=== PATIENT | female | born 1960 | race Caucasian/White ===

== ENCOUNTER 2016-09-22 16:33 | Emergency (ER) | payer BC ==
[2016-09-22 16:44] VITALS: BP 112/70
--- NOTE | 2016-09-22 18:00 | UC ---
Ear Complaint HPI - HPI Summary HPI Summary: 55 female presents with complaints of right ear feeling itchy and having some radiation of pain when she swallows that began 2-3 days ago. She has not tried taking anything. Patient is having surgery in the next week and wanted to make sure she didn't have an ear infection. She has had them in the past but has not been sick in a long time. States her ear feels itchy. Denies sore throat, cough , and fever/chills. Admits to some nasal drainage/congestion and itchy eyes. - History of Current Complaint Chief Complaint: UCGeneralIllness Stated Complaint: RIGHT EAR/CONGESTION Time Seen by Provider: 09/22/16 17:35 Hx Obtained From: Patient ?: No Onset/Duration: Sudden Onset Severity Initially: Mild Severity Currently: Mild Aggravating Factors: Nothing Alleviating Factors: Nothing Associated Signs/Symptoms: Negative: Discharge, Foreign Body Sensation, Trauma to Ear, URI Symptoms - Allergies/Home Medications Allergies/Adverse Reactions: Allergies Allergy/AdvReac Type Severity Reaction Status Date / Time Amoxicillin Allergy Hives Verified 09/22/16 16:44 Erythromycin Allergy Hives Verified 09/22/16 16:44 Latex Allergy Rash Verified 09/22/16 16:44 Nickel Allergy Rash Verified 09/22/16 16:44 Ondansetron [From Zofran] Allergy Anaphylatic Verified 09/22/16 16:44 Shock Penicillins Allergy Unknown Verified 09/22/16 16:44 Reaction Details Sulfa Antibiotics Allergy Hives Verified 09/22/16 16:44 Vancomycin Allergy Hives Verified 09/22/16 16:44 PMH/Surg Hx/FS Hx/Imm Hx Endocrine History Of: Reports: Diabetes Cardiovascular History Of: Reports: Cardiac Disorders - Angioplasty Respiratory History Of: Reports: COPD - Surgical History Surgical History: Yes Surgery Procedure, Year, and Place: #3 right knee. tubal. 4 right hand surgeries. 2 left hand surgeries - Family History Known Family History: Positive: Cardiac Disease - mother, Hypertension - Social History Alcohol Use: Rare Substance Use Type: None Smoking Status (MU): Heavy Every Day Tobacco Smoker Review of Systems Constitutional: Negative Skin: Negative Eyes: Negative ENT: Ear Ache - radiation of pain to throat upon swallowing Respiratory: Negative Cardiovascular: Negative Gastrointestinal: Negative Neurovascular: Negative Musculoskeletal: Negative Neurological: Negative Psychological: Negative All Other Systems Reviewed And Are Negative: Yes Physical Exam Triage Information Reviewed: Yes Appearance: Well-Appearing, No Pain Distress, Well-Nourished Vital Signs: Initial Vital Signs Temp 98.5 F 09/22/16 16:40 Pulse 81 09/22/16 16:40 Resp 16 09/22/16 16:40 BP 112/70 09/22/16 16:40 Pulse Ox 100 09/22/16 16:40 Vital Signs Reviewed: Yes Eyes: Positive: Conjunctiva Clear - some cobblestoning of conjunctiva b/l noted ENT: Positive: Normal ENT inspection, Hearing grossly normal, Pharynx normal, TMs normal - fluid behind TM right ear. Negative: Pharyngeal erythema, Nasal congestion, Nasal drainage, TM bulging, TM dull, TM red, Tonsillar swelling Dental: Negative: Percussion Tenderness @, Cervical Lymphadenopathy Neck: Positive: Supple, Nontender Respiratory: Positive: Chest non-tender, Lungs clear, Normal breath sounds, No respiratory distress Cardiovascular: Positive: RRR, No Murmur, Pulses Normal Psychological Exam: Normal Skin Exam: Normal Ear Complaint Course/Dx - Course Course Of Treatment: patient will be instructed to take anti-histamine and flonase to help with eustachian tube dysfunction and allergies. aware of worsening signs/symptoms - Differential Dx/Diagnosis Differential Diagnosis/HQI/PQRI: Cerumen Impaction, Otitis Externa, Otitis Media , URI Provider Diagnoses: eustachian tube dysfunction, seasonal allergies Discharge - Discharge Plan Condition: Stable Disposition: HOME Prescriptions: Fluticasone NASAL SPRAY 50MCG* [Flonase NASAL SPRAY 50MCG*] 2 spray BOTH NARES DAILY #1 btl Patient Education Materials: Eustachian Tube Dysfunction (GEN), Allergies (ED) Referrals: Sebastian NOLAN,Michelle Carrillo [Primary Care Provider] - Additional Instructions: Take OTC Caren to help with fluid build up for the next 7 days or until symptoms last. Also use prescribed nasal spray for the next 5 days. Keep a close eye on your blood sugars. You may also want to try saline nasal spray. If symptoms worsen or do not improve please make an appointment with your primary care provider or return for further evaluation.
== END 2016-09-22 18:07 | disposition home or self-care (01) ==
LOC: UCCORT 16:33
DX: H69.91 Unspecified Eustachian tube disorder, right ear (principal); J30.2 Other seasonal allergic rhinitis; Z88.1 Allergy status to other antibiotic agents; Z88.0 Allergy status to penicillin; Z88.2 Allergy status to sulfonamides; F17.210 Nicotine dependence, cigarettes, uncomplicated
CPT/HCPCS: 99212; G0463

== ENCOUNTER 2018-03-22 13:04 | Emergency (ER) | payer BC ==
--- OUTSIDE RECORDS SUMMARY | 2018-03-22 13:20 | XMS REPORT ---
:1960 External Reference #:[id number] Author Organization [facility], [facility] Address [address] [place] [address] Phone [phone] Care Team Providers Name Role Phone Michelle Arias MD Primary Care Physician Unavailable Payers Type Date Identification Numbers Payment Provider Subscriber Commercial Policy Number: [id number] Barbara HALLMAN [facility] Toya Hinson PayID: [id number] [address] [address] [place] [address] Problems Date Description Provider Status Onset: 11/11/2012 Tobacco dependence syndrome Active Onset: 11/11/2012 Type 1 diabetes mellitus Active Onset: 09/10/2016 Subclavian artery stenosis Michelle Melendez MD Active Note: s/p PTCA in 2011, followed by [facility] vascular Onset: 09/10/2016 Degeneration of lumbar Michelle Melendez MD Active intervertebral disc Onset: 09/10/2016 Chronic obstructive lung disease Michelle Melendez MD Active Note: PFT done 09/09/15: FEV1 1.49, FVC 2.65 moderate obstructive lung defect , no response to bronchodilator Onset: 08/23/2014 Ulcer of foot Resolved Resolved: 09/10/2016 Onset: 11/11/2012 Asthma Resolved Resolved: 09/10/2016 Family History Date Family Member(s) Problem(s) Comments Mother Degenerative Joint Disease Social History Type Date Description Comments ETOH Use Denies alcohol use Smoking Heavy tobacco smoker (more than 10 cigarettes/day) Recreational Drug Use Denies Drug Use Daily Caffeine Consumes on average 5-10 cups of regular coffee per day Exercise Type/Frequency Does not exercise Allergies, Adverse Reactions, Alerts Date Description Reaction Status Severity Comments 09/08/2016 Penicillins active 09/08/2016 Sulfa Antibiotics active 09/08/2016 Latex active 09/08/2016 Zofran active Fatal Medications Medication Date Status Form Strength Qnty SIG Indications Ordering Provider Ventolin HFA 09/21/ Active Aerosol 108(90Base 18gm inhale 2 2016 ) mcg/Act puff by [facility] inhalation MD Al route every 4 - 6 hours needed Valerian 09/08/ Active Capsules 500mg 2 every day 2016 Michael Melendez MD Melatonin 09/08/ Active Capsules 10mg 30caps 1 cap by 2016 mouth AT [facility] bedtime MD Al needed Vitamin D 09/08/ Active Tablets 2000Unit 1 by mouth 2016 every day Michael Melendez MD Duoneb 09/18/ Active Solution 0.5-2.5(3) 1units Use one vial Unknown 2015 mg/3ML via nebulizer every 4 hours Aspirin 11/11/ Active Tablets 325mg take 1 Unknown 2012 tablet (325MG) by oral route every day Humalog 03/10/ Active Solution 100Unit/ML 0units Use Unknown 2004 Directed Tizanidine / Active Capsules 2mg 0caps take 2 Unknown HCL 0000 Capsule by oral route AT bedtime Simvastatin / Active Tablets 10mg 1 by mouth Unknown 0000 every day Protopic 01/30/ Hx Ointment 0.1% apply by Unknown 2012 - topical 09/08/ route 2 2017 times every day a thin layer to the affected area(s) ; rub in gently and co Combivent 03/10/ Hx Aerosol 18-103mcg/ 0units Use Unknown 2004 - Act Directed 2016 Immunizations CPT Code Status Date Vaccine Lot # [id number] Given 04/08/2017 Influenza Vaccine, High Dose > 65 Years Old (Includes Medicare) 02000 Given 04/14/2016 Influenza Virus Vaccine, Split 3 Yrs AB Vital Signs Date Vital Result Comment 03/09/2018 Weight 111.00 lb BP Systolic 140 mmHg BP Diastolic 80 mmHg Heart Rate 79 /min Body Temperature 98.2 F Temperature in Celsius 36.8 O2 % BldC Oximetry 98 % 02/11/2018 Height 63 inches 5'3" Weight 111.00 lb BMI (Body Mass Index) 19.7 kg/m2 BP Systolic 112 mmHg BP Diastolic 80 mmHg Heart Rate 78 /min O2 % BldC Oximetry 98 % 09/08/2016 Weight 116.00 lb BP Systolic 140 mmHg BP Diastolic 72 mmHg Heart Rate 85 /min Body Temperature 97.8 F Temperature in Celsius 36.6 O2 % BldC Oximetry 98 % 08/23/2014 Height 64.75 inches Weight 119.00 lb BMI (Body Mass Index) 19.95 kg/m2 BP Systolic 133 mmHg BP Diastolic 81 mmHg Heart Rate 82 /min Body Temperature 97.3 F Temperature in Celsius 36.3 O2 % BldC Oximetry 98 % 06/29/2013 Heart Rate 91 /min 06/29/2013 Weight 120.00 lb BP Systolic 128 mmHg BP Diastolic 60 mmHg Heart Rate 91 /min Body Temperature 96.2 F Temperature in Celsius 35.7 05/29/2013 Heart Rate 84 /min O2 % BldC Oximetry 98 % 05/29/2013 Weight 118.19 lb BP Systolic 138 mmHg BP Diastolic 72 mmHg Heart Rate 84 /min Body Temperature 96.2 F Temperature in Celsius 35.7 O2 % BldC Oximetry 98 % 01/30/2013 Heart Rate 85 /min O2 % BldC Oximetry 92 % 01/30/2013 Weight 114.00 lb BP Systolic 120 mmHg BP Diastolic 77 mmHg Heart Rate 85 /min Body Temperature 98.0 F Temperature in Celsius 36.7 O2 % BldC Oximetry 92 % 11/11/2012 Heart Rate 76 /min O2 % BldC Oximetry 95 % 11/11/2012 Weight 121.00 lb BP Systolic 120 mmHg BP Diastolic 84 mmHg Heart Rate 76 /min Body Temperature 98.5 F Temperature in Celsius 36.9 O2 % BldC Oximetry 95 % 09/07/2012 Weight 119.00 lb BP Systolic 140 mmHg BP Diastolic 86 mmHg Heart Rate 83 /min Body Temperature 98.4 F Temperature in Celsius 36.9 06/23/2012 Weight 115.00 lb BP Systolic 114 mmHg BP Diastolic 66 mmHg 11/06/2009 BP Systolic 130 mmHg BP Diastolic 87 mmHg Heart Rate 85 /min Body Temperature 97.9 F Temperature in Celsius 36.6 02/21/2007 Height 64.75 inches Weight 116.50 lb BMI (Body Mass Index) 19.00 kg/m2 BP Systolic 110 mmHg BP Diastolic 70 mmHg Heart Rate 64 /min Results Test Date Test Result H/L Range Note Laboratory test finding 10/14/2017 Glucose Poc 151 mg/dL High 70-105 Hemoglobin A1c 10/14/2017 Hgb A1c MFr Bld 8.5 % High 4.0-6.0 Est. average glucose Bld gHb Est-mCnc 197 mg/dL High <126 Laboratory test finding 11/30/2016 Hemoglobin A1c 7.4 Laboratory test finding 09/08/2016 Hgb A1c 8.6 % High 3.6-6.9 1 LPPM 09/08/2016 Cholesterol 143 mg/dL 0-200 Triglycerides 56 mg/dL 0-249 2 HDL 65 mg/dL High 40-60 LDL-Calculated 67 mg/dL 0-130 VLDL 11 mg/dL 0-28 Cardiac Risk 2.20 Ratio Low 3.7-5.3 CMP-Female 09/08/2016 Glucose 119 mg/dL High 74-106 3 BUN 12 mg/dL 6-20 Creatinine 0.6 mg/dL 0.5-1.3 Sodium 145 mmol/L 136-145 Potassium 4.4 mmol/L 3.5-5.3 Chloride 109 mmol/L High 98-107 Co2 30 mEq/L 20-31 Anion Gap 6 mmol/L Low 7-16 eGFR-female 105 mL/m/1.73m - eGFR-Aa female 127 mL/m/1.73m - 4 Alk. Phos. 80 U/L 46-116 Alt 17 U/L 4-36 Ast 14 U/L 8-33 Total Bilirubin 0.9 mg/dL 0.3-1.2 Total Protein 6.4 g/dL 6.4-8.3 5 Albumin 4.2 g/dL 3.4-4.8 A/G Ratio 1.9 Ratio 1.0-2.0 Globulin 2.2 g/dL Low 2.4-3.7 Calcium 10.0 mg/dL 8.9-10.5 Cbcadp 09/08/2016 WBC 9.1 x10E3/uL 4.2-12.0 RBC 4.52 x10E6/uL 3.9-5.4 HGB 14.3 g/dL 12.0-16.0 HCT 43.0 % 36-47 MCV 95.2 fL 80-98 MCH 31.7 pg 27-33 MCHC 33.3 g/dL 32-36 RDW 13.0 % 11.2-15.2 PLT 321 x10E3/uL 135-420 MPV 8.5 fL 7.0-12.3 % [place] 55.1 % 41.0-80.0 %Lym 38.5 % 10.0-45.2 %Early 4.9 % 2.0-13.0 %Eos 1.0 % 0.0-8.0 %Baso 0.6 % 0.0-3.0 Neut 5.0 x10E3/uL 2.0-8.1 Lymp 3.5 x10E3/uL High 0.6-3.1 Early 0.4 x10E3/uL 0.0-1.0 Eos 0.1 x10E3/uL 0.0-0.6 Baso 0.1 x10E3/uL 0.0-0.2 PT-Inr 09/08/2016 PT 11.1 Sec 9.6-12.0 Inr 1.0 - 6 Laboratory test finding 09/08/2016 PTT 31.8 Sec 25.5-35.5 7 Est. Average Glucose 200 mg/dL - 8 Venipuncture DONE - 9 CMP-Female 02/06/2013 A/G Ratio 1.8 Ratio A/G Ratio 1.8 Ratio Albumin 3.9 g/dL Albumin 3.9 g/dL Alk. Phos. 88 U/L Alk. Phos. 88 U/L Alt 26 U/L Alt 26 U/L Anion Gap 2 mmol/L Anion Gap 2 mmol/L Ast 20 U/L Ast 20 U/L BUN 15 mg/dL 10 BUN 15 mg/dL 11 Calcium 9.7 mg/dL Calcium 9.7 mg/dL Chloride 107 mmol/L Chloride 107 mmol/L Co2 31 mEq/L Co2 31 mEq/L Creatinine 0.6 mg/dL Creatinine 0.6 mg/dL Globulin 2.2 g/dL Globulin 2.2 g/dL Glucose 98 mg/dL 12 Glucose 98 mg/dL 13 Potassium 4.8 mmol/L Potassium 4.8 mmol/L Sodium 140 mmol/L Sodium 140 mmol/L Total Bilirubin 0.8 mg/dL Total Bilirubin 0.8 mg/dL Total Protein 6.1 g/dL 14 Total Protein 6.1 g/dL 15 eGFR-Aa female 128 mL/m/1.73m 16 eGFR-Aa female 128 mL/m/1.73m 17 eGFR-female 106 mL/m/1.73m eGFR-female 106 mL/m/1.73m Venipuncture 02/06/2013 Venipuncture Done CMP-Female 02/01/2013 A/G Ratio 1.7 Ratio Albumin 4.1 g/dL Alk. Phos. 88 U/L Alt 19 U/L Anion Gap 3 mmol/L Ast 17 U/L BUN 11 mg/dL Calcium 9.8 mg/dL Chloride 106 mmol/L Co2 30 mEq/L Creatinine 0.6 mg/dL Globulin 2.4 g/dL Glucose 223 mg/dL 18 Potassium 5.8 mmol/L 19 Sodium 139 mmol/L Total Bilirubin 0.9 mg/dL Total Protein 6.5 g/dL 20 eGFR-Aa female 128 mL/m/1.73m 21 eGFR-female 106 mL/m/1.73m Venipuncture 02/01/2013 Venipuncture Done Amylase 01/30/2013 Amylase 57 U/L Amylase 57 U/L Venipuncture 01/30/2013 Venipuncture Done Cbcadp 01/30/2013 % [place] 62.3 % % [place] 62.3 % %Baso 1.2 % %Baso 1.2 % %Eos 1.5 % %Eos 1.5 % %Lym 29.5 % %Lym 29.5 % %Early 3.9 % %Early 3.9 % Baso 0.1 x10E3/uL Baso 0.1 x10E3/uL Eos 0.2 x10E3/uL Eos 0.2 x10E3/uL HCT 44.9 % HCT 44.9 % HGB 15.1 g/dL HGB 15.1 g/dL Lymp 3.1 x10E3/uL Lymp 3.1 x10E3/uL MCH 32.0 pg MCH 32.0 pg MCHC 33.6 g/dL MCHC 33.6 g/dL MCV 95.1 fL MCV 95.1 fL MPV 7.8 fL MPV 7.8 fL Early 0.4 x10E3/uL Early 0.4 x10E3/uL Neut 6.6 x10E3/uL Neut 6.6 x10E3/uL PLT 362 x10E3/uL PLT 362 x10E3/uL RBC 4.72 x10E6/uL RBC 4.72 x10E6/uL RDW 12.3 % RDW 12.3 % WBC 10.5 x10E3/uL 22 WBC 10.5 x10E3/uL 23 CMP-Female 01/30/2013 Anion Gap 4 mmol/L Anion Gap 4 mmol/L BUN 11 mg/dL 24 BUN 11 mg/dL 25 Calcium 9.7 mg/dL Calcium 9.7 mg/dL Chloride 105 mmol/L Chloride 105 mmol/L Co2 32 mEq/L 26 Co2 32 mEq/L 27 Creatinine 0.7 mg/dL Creatinine 0.7 mg/dL Glucose 255 mg/dL 28 Glucose 255 mg/dL 29 Potassium 5.5 mmol/L Potassium 5.5 mmol/L Sodium 141 mmol/L Sodium 141 mmol/L eGFR-Aa female 107 mL/m/1.73m 30 eGFR-Aa female 107 mL/m/1.73m 31 eGFR-female 89 mL/m/1.73m eGFR-female 89 mL/m/1.73m LDH 01/30/2013 LDH 154 U/L LDH 154 U/L PREM 01/30/2013 A/G Ratio 2.0 Ratio A/G Ratio 2.0 Ratio Albumin 4.0 g/dL Albumin 4.0 g/dL Alk. Phos. 93 U/L Alk. Phos. 93 U/L Alt 18 U/L Alt 18 U/L Ast 18 U/L Ast 18 U/L Direct Bilirubin 0.3 mg/dL Direct Bilirubin 0.3 mg/dL Globulin 2 g/dL Globulin 2 g/dL Total Bilirubin 0.8 mg/dL Total Bilirubin 0.8 mg/dL Total Protein 6.0 g/dL 32 Total Protein 6.0 g/dL 33 Lipase 01/30/2013 Lipase 33.0 U/L Lipase 33.0 U/L Phosphorus 01/30/2013 Phosphorus 3.2 mg/dL Phosphorus 3.2 mg/dL Uric Acid 01/30/2013 Uric Acid 2.7 mg/dL Uric Acid 2.7 mg/dL Lipase 09/07/2012 Lipase 37.0 U/L Lipase 37.0 U/L Phosphorus 09/07/2012 Phosphorus 4.0 mg/dL Phosphorus 4.0 mg/dL Troponin, Ultra 09/07/2012 Troponin, Ultra <0.006 ng/mL 34 Troponin, Ultra <0.006 ng/mL 35 UA_M 09/07/2012 Bacteria. Negative Bacteria. Negative Blood. Negative Blood. Negative Clarity. Cloudy Clarity. Cloudy Color. Yellow Color. Yellow Glucose, Urine Negative Glucose, Urine Negative Ketone. Negative Ketone. Negative Leukocytes. Negative Leukocytes. Negative Nitrite. Negative Nitrite. Negative Protein. Negative Protein. Negative Red Blood Cell 0 - 2 Red Blood Cell 0 - 2 Specific [place]. 1.018 Specific [place]. 1.018 Squamous Epithelial Cell 2 - 5 Squamous Epithelial Cell 2 - 5 White Blood Cell 0 - 2 White Blood Cell 0 - 2 bilirubin. Negative bilirubin. Negative PH. 7.5 PH. 7.5 Uric Acid 09/07/2012 Uric Acid 2.7 mg/dL Uric Acid 2.7 mg/dL Venipuncture 09/07/2012 Venipuncture Done Venipuncture Done LDH 09/07/2012 LDH 154 U/L LDH 154 U/L Culture, Urine 09/07/2012 Culture, Urine See Comment 36 CMP-Female 09/07/2012 A/G Ratio 1.9 Ratio A/G Ratio 1.9 Ratio Albumin 4.3 g/dL Albumin 4.3 g/dL Alk. Phos. 77 U/L Alk. Phos. 77 U/L Alt 19 U/L Alt 19 U/L Anion Gap 5 mmol/L Anion Gap 5 mmol/L Ast 19 U/L Ast 19 U/L BUN 19 mg/dL BUN 19 mg/dL Calcium 9.5 mg/dL Calcium 9.5 mg/dL Chloride 106 mmol/L Chloride 106 mmol/L Co2 31 mEq/L Co2 31 mEq/L Creatinine 0.7 mg/dL Creatinine 0.7 mg/dL Globulin 2.3 g/dL Globulin 2.3 g/dL Glucose 104 mg/dL 37 Glucose 104 mg/dL 38 Potassium 3.9 mmol/L Potassium 3.9 mmol/L Sodium 142 mmol/L Sodium 142 mmol/L Total Bilirubin 0.5 mg/dL Total Bilirubin 0.5 mg/dL Total Protein 6.6 g/dL 39 Total Protein 6.6 g/dL 40 eGFR-Aa female 108 mL/m/1.73m 41 eGFR-Aa female 108 mL/m/1.73m 42 eGFR-female 89 mL/m/1.73m eGFR-female 89 mL/m/1.73m Amylase 09/07/2012 Amylase 70 U/L Amylase 70 U/L Advia Cbcadp 09/07/2012 % [place] 55.2 % % [place] 55.2 % %Baso 0.8 % %Baso 0.8 % %Eos 1.3 % %Eos 1.3 % %Lym 34.9 % %Lym 34.9 % %Early 6.0 % %Early 6.0 % Baso 0.1 x10E3/uL Baso 0.1 x10E3/uL Eos 0.1 x10E3/uL Eos 0.1 x10E3/uL HCT 43.1 % HCT 43.1 % HGB 14.5 g/dL HGB 14.5 g/dL Lymp 2.7 x10E3/uL Lymp 2.7 x10E3/uL MCH 32.0 pg MCH 32.0 pg MCHC 33.5 g/dL MCHC 33.5 g/dL MCV 95.5 fL MCV 95.5 fL MPV 7.3 fL MPV 7.3 fL Early 0.5 x10E3/uL Early 0.5 x10E3/uL Neut 4.3 x10E3/uL Neut 4.3 x10E3/uL PLT 385 x10E3/uL PLT 385 x10E3/uL RBC 4.52 x10E6/uL RBC 4.52 x10E6/uL RDW 12.2 % RDW 12.2 % WBC 7.7 x10E3/uL WBC 7.7 x10E3/uL Advia Cbcadp 11/06/2009 % [place] 62.3 % %Baso 0.4 % %Eos 2.8 % %Lym 29.1 % %Early 4.3 % Baso 0.0 x10E3/uL Eos 0.3 x10E3/uL HCT 41.5 % HGB 14.1 g/dL Lymp 2.6 x10E3/uL MCH 31.4 pg MCHC 33.9 g/dL MCV 92.6 fL MPV 7.6 fL Early 0.4 x10E3/uL Neut 5.6 x10E3/uL PLT 302 x10E3/uL RBC 4.49 x10E6/uL RDW 12.3 % WBC 8.9 x10E3/uL 1 Hgb A1c Interpretation: <5.8% - Non-diabetic >6.5% - Diabetic <7.0% - ADA diabetic treatment goal 2 National Cholesterol Education Program (NCEP) Guidelines: Recommended Range <150 mg/dL 3 Citizen Of The [place] Diabetes Association (ADA) Recommended Range is 65-99 mg/dL 4 Normal Kidney Function or Mild Disease GFR >59 mL/min/1.73m2 Chronic Kidney Disease GFR 15-59 mL/min/1.73m2 Renal Failure GFR <15 mL/min/1.73m2 5 Results may reflect a potential interference in Total Protein results in patients receiving dextran as blood volume expanders. 6 Labprint and transmitted 2.14.17 1355 ss * INR Interpretation : . Recommended Theraputic Range: 2.0 - 3.0 . For treatment/prophylaxis . of venous thrombosis, . prevention of embolism. . . 7 fasting 8 The Estimated Average Glucose is a calculation of the average glucose over the last 120 days including non-fasting as well as fasting levels. 9 fasting 10 Labprint and transmitted 1100 kmc 11 Labprint and transmitted 1100 kmc 12 Citizen Of [place] Diabetes Association (ADA) Recommended Range is 65-99 mg/dL 13 Citizen Of [place] Diabetes Association (ADA) Recommended Range is 65-99 mg/dL 14 Look for trends 15 Look for trends 16 Normal Kidney Function or Mild Disease GFR >59 mL/min/1.73m2 Chronic Kidney Disease GFR 15-59 mL/min/1.73m2 Renal Failure GFR <15 mL/min/1.73m2 As of 09/24/2008 the equation used to calculate eGFR has been changed to reflect a reagent reformulation. The reference range has not been affected. 17 Normal Kidney Function or Mild Disease GFR >59 mL/min/1.73m2 Chronic Kidney Disease GFR 15-59 mL/min/1.73m2 Renal Failure GFR <15 mL/min/1.73m2 As of 09/24/2008 the equation used to calculate eGFR has been changed to reflect a reagent reformulation. The reference range has not been affected. 18 Citizen Of [place] Diabetes Association (ADA) Recommended Range is 65-99 mg/dL 19 Results Confirmed by Repeat Analysis. 20 Results may reflect a potential interference in Total Protein results in patients receiving dextran as blood volume expanders. 21 Normal Kidney Function or Mild Disease GFR >59 mL/min/1.73m2 Chronic Kidney Disease GFR 15-59 mL/min/1.73m2 Renal Failure GFR <15 mL/min/1.73m2 As of 09/24/2008 the equation used to calculate eGFR has been changed to reflect a reagent reformulation. The reference range has not been affected. 22 results faxed 100 do 23 results faxed 100 do 24 Labprint and transmitted 1641 kmc 25 Labprint and transmitted 1641 kmc 26 Results Confirmed by Repeat Analysis. 27 Results Confirmed by Repeat Analysis. 28 Citizen Of [place] Diabetes Association (ADA) Recommended Range is 65-99 mg/dL 29 Citizen Of [place] Diabetes Association (ADA) Recommended Range is 65-99 mg/dL 30 Normal Kidney Function or Mild Disease GFR >59 mL/min/1.73m2 Chronic Kidney Disease GFR 15-59 mL/min/1.73m2 Renal Failure GFR <15 mL/min/1.73m2 As of 09/24/2008 the equation used to calculate eGFR has been changed to reflect a reagent reformulation. The reference range has not been affected. 31 Normal Kidney Function or Mild Disease GFR >59 mL/min/1.73m2 Chronic Kidney Disease GFR 15-59 mL/min/1.73m2 Renal Failure GFR <15 mL/min/1.73m2 As of 09/24/2008 the equation used to calculate eGFR has been changed to reflect a reagent reformulation. The reference range has not been affected. 32 Results Confirmed by Repeat Analysis. 33 Results Confirmed by Repeat Analysis. 34 Please note new reference range. Ultra sensitive assay in use. 35 Please note new reference range. Ultra sensitive assay in use. 36 Report Type: Final Sample Information Test: Culture, Urine Specimen Type: Source: Request Date/Time: 09/07/12 10:56 Collect Date/Time: 09/07/12 10:04 Receive Date/Time: 09/07/12 10:56 Status: Completed 09/08/2012 @ 12:33 Comment: CULTURE REPORT Plated Date/Time: / / : Elapsed Time Culture Report 18 Hours Culture grew three (3) or more organisms. No predominating organism. 37 Citizen [place] Diabetes Association (ADA) Recommended Range is 65-99 mg/dL 38 Citizen Of [place] Diabetes Association (ADA) Recommended Range is 65-99 mg/dL 39 Results may reflect a potential interference in Total Protein results in patients receiving dextran as blood volume expanders. 40 Results may reflect a potential interference in Total Protein results in patients receiving dextran as blood volume expanders. 41 Normal Kidney Function or Mild Disease GFR >59 mL/min/1.73m2 Chronic Kidney Disease GFR 15-59 mL/min/1.73m2 Renal Failure GFR <15 mL/min/1.73m2 As of 09/24/2008 the equation used to calculate eGFR has been changed to reflect a reagent reformulation. The reference range has not been affected. 42 Normal Kidney Function or Mild Disease GFR >59 mL/min/1.73m2 Chronic Kidney Disease GFR 15-59 mL/min/1.73m2 Renal Failure GFR <15 mL/min/1.73m2 As of 09/24/2008 the equation used to calculate eGFR has been changed to reflect a reagent reformulation. The reference range has not been affected. Procedures Date CPT Code Description Status 09/09/2016 92804 Bronchodilation Responsiveness Spirometry Pre/Post Completed Bronchodil Adm 11/07/2009 53448 Echography Extremity Non-Vascular B-Scan Completed 05/16/2007 09890 Pulse Oximetry Single Determination Completed 05/16/2007 19760 X-Ray Chest Two Views Frontal & Lateral Completed Encounters Type Date Location Provider CPT E/M Dx Office Visit 02/11/2018 10:00a [facility] [address] R51 Renée Office Visit 09/08/2016 11:30a [facility] [address] M50.10 Renée Melendez MD E10.65 J43.9 I73.9 Plan of Care No Information Available
[2018-03-22 14:13] VITALS: BP 140/76
--- NOTE | 2018-03-22 14:22 | UC ---
Skin Complaint HPI - HPI Summary HPI Summary: rash left lower abdomen x 2 days total of 3 papular rash very itchy, no pain no fever, no chills - History of Current Complaint Chief Complaint: UCSkin Time Seen by Provider: 03/22/18 14:06 Stated Complaint: RASH Hx Obtained From: Patient Onset/Duration: Gradual Onset, Lasting Days - 2, Still Present Timing: Constant Onset Severity: Moderate Current Severity: Moderate Pain Intensity: 0 Location: Other - left lower abd Character: Pruritus, Redness, Raised Aggravating Factor(s): Nothing Alleviating Factor(s): Nothing Associated Signs & Symptoms: Positive: Negative Related History: Insect Bite/Sting - Allergy/Home Medications Allergies/Adverse Reactions: Allergies Allergy/AdvReac Type Severity Reaction Status Date / Time ondansetron Allergy Severe Anaphylatic Verified 03/22/18 14:17 Shock amoxicillin Allergy Unknown Hives Verified 03/22/18 14:17 erythromycin base Allergy Unknown Hives Verified 03/22/18 14:17 latex Allergy Unknown Rash Verified 03/22/18 14:20 nickel Allergy Unknown Rash Verified 03/22/18 14:20 Sulfa (Sulfonamide Allergy Unknown Hives Verified 03/22/18 14:17 Antibiotics) vancomycin Allergy Unknown Hives Verified 03/22/18 14:17 MS Amoxicillin [Amoxicillin] Allergy Hives Verified 03/22/18 13:59 MS Erythromycin Allergy Hives Verified 03/22/18 13:59 [Erythromycin] MS Latex [Latex] Allergy Rash Verified 03/22/18 13:59 MS Nickel [Nickel] Allergy Rash Verified 03/22/18 13:59 MS Ondansetron [From Zofran] Allergy Anaphylatic Verified 03/22/18 13:59 Shock MS Penicillins [Penicillins] Allergy Unknown Verified 03/22/18 13:59 Reaction Details MS Sulfa Antibiotics Allergy Hives Verified 03/22/18 13:59 [Sulfa Antibiotics] MS Vancomycin [Vancomycin] Allergy Hives Verified 03/22/18 13:59 wiskey Allergy Severe Anaphylatic Uncoded 03/22/18 14:00 Shock Review of Systems Constitutional: Negative Skin: Rash Eyes: Negative ENT: Negative Respiratory: Negative Is Patient Immunocompromised?: No All Other Systems Reviewed And Are Negative: Yes PMH/Surg Hx/FS Hx/Imm Hx Endocrine History: Diabetes - Surgical History Surgical History: Yes Surgery Procedure, Year, and Place: neck fusion. #3 right knee. tubal. 4 right hand surgeries. 2 left hand surgeries. ANGIOPLASTY - Family History Known Family History: Positive: Cardiac Disease - mother, Hypertension - Social History Alcohol Use: Rare Substance Use Type: None Smoking Status (MU): Heavy Every Day Tobacco Smoker Type: Cigarettes Amount Used/How Often: 3/4 PPD Household Exposure Type: Cigarettes Physical Exam Triage Information Reviewed: Yes Appearance: Well-Appearing, No Pain Distress, Well-Nourished Vital Signs: Initial Vital Signs Temp 98.9 F 03/22/18 14:02 Pulse 74 03/22/18 14:02 Resp 16 03/22/18 14:02 BP 140/76 03/22/18 14:02 Pulse Ox 99 03/22/18 14:02 Vital Signs Reviewed: Yes Eye Exam: Normal Eyes: Positive: Conjunctiva Clear ENT: Positive: Normal ENT inspection, Hearing grossly normal, Pharynx normal Neck: Positive: Supple, Nontender, No Lymphadenopathy Respiratory: Positive: Chest non-tender, Lungs clear, Normal breath sounds Cardiovascular: Positive: RRR, No Murmur, Pulses Normal Skin: Positive: rashes - papular rash left lower abd., + erythema, not tender Course/Dx - Diagnoses Provider Diagnoses: insect bite abdominal wall Discharge - Sign-Out/Discharge Documenting (check all that apply): Patient Departure All imaging exams completed and their final reports reviewed: No Studies - Discharge Plan Condition: Stable Disposition: HOME Prescriptions: Triamcinolone 0.1% CREAM (NF) [Kenalog 0.1% Cream (NF)] 1 applic TOPICAL BID # 30 gm Patient Education Materials: Insect Bite or Sting (ED) Referrals: Sebastian NOLAN,Michelle Carrillo [Primary Care Provider] - If Needed - Billing Disposition and Condition Condition: STABLE Disposition: Home
== END 2018-03-22 14:30 | disposition home or self-care (01) ==
LOC: UCCORT 13:04
DX: S30.861A Insect bite (nonvenomous) of abdominal wall, initial encounter (principal); E11.9 Type 2 diabetes mellitus without complications; F17.210 Nicotine dependence, cigarettes, uncomplicated; Z88.8 Allergy status to other drugs, medicaments and biological substances; Z88.0 Allergy status to penicillin; Z88.1 Allergy status to other antibiotic agents; Z91.040 Latex allergy status; Z91.09 Other allergy status, other than to drugs and biological substances; Z88.2 Allergy status to sulfonamides; Z91.018 Allergy to other foods; W57.XXXA Bitten or stung by nonvenomous insect and other nonvenomous arthropods, initial encounter; Y92.9 Unspecified place or not applicable
CPT/HCPCS: 99212; G0463

== ENCOUNTER 2019-02-17 12:54 | Emergency (ER) | payer BC ==
[2019-02-17 13:27] VITALS: BP 125/66
--- NOTE | 2019-02-17 13:53 | UC ---
General HPI - HPI Summary HPI Summary: PT HAD SOME SPOTS ON HER FOREHEAD AND CHEEKS FROZEN BY DERMATOLOGY 2 DAYS AGO. TODAY, SHE NOTES SWELLING TO HER HER L JAW. - History of Current Complaint Chief Complaint: UCSkin Stated Complaint: SKIN COMPLAINT Time Seen by Provider: 02/17/19 13:46 Hx Obtained From: Patient Timing: Constant Pain Intensity: 0 Associated Signs & Symptoms: Negative: Fever - Allergy/Home Medications Allergies/Adverse Reactions: Allergies Allergy/AdvReac Type Severity Reaction Status Date / Time ondansetron Allergy Severe Anaphylatic Verified 02/17/19 13:20 Shock amoxicillin Allergy Unknown Hives Verified 02/17/19 13:20 erythromycin base Allergy Unknown Hives Verified 02/17/19 13:20 latex Allergy Unknown Rash Verified 02/17/19 13:20 nickel Allergy Unknown Rash Verified 02/17/19 13:20 Penicillins Allergy Unknown Unknown Verified 02/17/19 13:20 Reaction Details Sulfa (Sulfonamide Allergy Unknown Hives Verified 02/17/19 13:20 Antibiotics) vancomycin Allergy Unknown Hives Verified 02/17/19 13:20 wiskey Allergy Severe Anaphylatic Uncoded 02/17/19 13:20 Shock Home Medications: Home Medications Aspirin EC TAB* [Ecotrin EC TAB*] 325 mg PO DAILY 02/17/19 [History Confirmed ] Fluticasone NASAL SPRAY 50MCG* [Flonase NASAL SPRAY 50MCG*] 2 spray BOTH NARES DAILY PRN 02/17/19 [History Confirmed 02/17/19] PMH/Surg Hx/FS Hx/Imm Hx Endocrine History: Diabetes, Dyslipidemia - Surgical History Surgical History: Yes Surgery Procedure, Year, and Place: neck fusion. #3 right knee. tubal. 4 right hand surgeries. 2 left hand surgeries. ANGIOPLASTY - Family History Known Family History: Positive: Cardiac Disease - mother, Hypertension - Social History Alcohol Use: None Substance Use Type: None Smoking Status (MU): Heavy Every Day Tobacco Smoker Type: Cigarettes Amount Used/How Often: 3/4 PPD Household Exposure Type: Cigarettes Review of Systems All Other Systems Reviewed And Are Negative: No Constitutional: Negative: Fever Skin: Positive: Rash - L JAW Musculoskeletal: Positive: Edema - L JAW Neurological: Negative: Headache Physical Exam Triage Information Reviewed: Yes Appearance: Well-Appearing Vital Signs: Initial Vital Signs Temp 98.7 F 02/17/19 13:21 Pulse 75 02/17/19 13:21 Resp 15 02/17/19 13:21 BP 125/66 02/17/19 13:21 Pulse Ox 100 02/17/19 13:21 Vital Signs Reviewed: Yes Eyes: Positive: Conjunctiva Clear Neurological: Positive: Alert Psychological: Positive: Age Appropriate Behavior Skin Exam: Normal, Other - PT HAS A FEW DRY-SCABS TO FOREHEAD AND CHEEKC FROM FREEZING TX'S. L JAW HAS A [id number] BLISTER WITH NO ERYTHEMA. Course/Dx - Course Course Of Treatment: CALL PLACED TO TXING PROVIDER AT HER DERMATOLOGY PRACT[facility] AND HE REQUEST PT COME THERE SO HE CAN CHECK IT. HE DOES BELIEVE IT TO BE A TX SPOT. - Diagnoses Provider Diagnosis: Blister, face Discharge - Sign-Out/Discharge Documenting (check all that apply): Patient Departure All imaging exams completed and their final reports reviewed: No Studies - Discharge Plan Condition: Stable Disposition: HOME Patient Education Materials: Blister (ED) Referrals: Laureen Kumari [Medical Doctor] - Additional Instructions: LEAVE HERE AND GO DIRECTLY TO YOUR PATHOLOGY COLLECTOR ON [facility] IN [place]. DILIP HAMMOND WILL RECHECK YOUR SKIN TREATMENT SITES. - Billing Disposition and Condition Condition: STABLE Disposition: Home
== END 2019-02-17 14:05 | disposition home or self-care (01) ==
LOC: UCCORT 12:54
DX: S00.82XA Blister (nonthermal) of other part of head, initial encounter (principal); X58.XXXA Exposure to other specified factors, initial encounter; Y92.9 Unspecified place or not applicable; E11.9 Type 2 diabetes mellitus without complications; F17.210 Nicotine dependence, cigarettes, uncomplicated
CPT/HCPCS: 99211; G0463